=== PATIENT | female | born 1975 | race Caucasian/White ===

== ENCOUNTER 2017-11-22 17:46 | Emergency (ER) | payer SELFPAY, OTHER | END 2017-11-22 21:57 | disposition left against medical advice (07) | LOC: FTE 17:46 | DX: Z53.21 Procedure and treatment not carried out due to patient leaving prior to being seen by health care provider (principal) ==

== ENCOUNTER 2018-02-21 17:53 | Emergency (ER) | payer OTHER ==
[2018-02-21 20:05] LABS: ADD UMIC NO; UR ASCORBIC ACID NEGATIVE (NEGATIVE); UR BILIRUBIN (Dip) NEGATIVE (NEGATIVE); UR BLOOD (Dip) NEGATIVE (NEGATIVE); UR CLARITY SLIGHTLY CLOUDY (CLEAR); UR COLOR YELLOW (YELLOW); UR GLUCOSE (Dip) NEGATIVE (NEGATIVE); UR KETONES (Dip) TRACE mg/dL (NEGATIVE); UR LEUKOCYTE ESTERASE (Dip) NEGATIVE Leu/ul (NEGATIVE); UR NITRITE (Dip) NEGATIVE (NEGATIVE); UR RBC 0 /HPF (0-5); UR SPECIFIC GRAVITY (Dip) 1.019 (1.003-1.030); UR SQUAMOUS EPITHELIAL CELL FEW /HPF (FEW); UR TOTAL PROTEIN (Dip) NEGATIVE (NEGATIVE); UR UROBILINOGEN (Dip) NEGATIVE (NEGATIVE); UR WBC 1 /HPF (0-5)
[2018-02-21] MEDS: SOD CHLORIDE 0.9% 1,000 ML IV (20:07)
[2018-02-21 20:28] LABS: ADD MAN DIFF? NO
[2018-02-21 20:30] LABS: BASOPHILS % 0.4 % (0.0-2.0); EOSINOPHILS # 0.1 10^3/ul (0.0-0.5); EOSINOPHILS % 1.1 % (0.0-7.0); HEMATOCRIT 44.9 % (37.0-47.0); HEMOGLOBIN 14.9 g/dl (12.0-16.0); LYMPHOCYTES # 3.7 10^3/ul (0.8-2.9); LYMPHOCYTES % 36.6 % (15.0-51.0); MEAN CORPUSCULAR HGB CONC 33.2 g/dl (32.0-37.0); MEAN CORPUSCULAR VOLUME 93.5 fl (82.0-101.0); MEAN PLATELET VOLUME 9.9 fl (7.4-10.4); MONOCYTE # 0.6 10^3/ul (0.3-0.9); MONOCYTES % 6.3 % (0.0-11.0); NEUTROPHIL # 5.5 10^3/ul (1.6-7.5); NEUTROPHILS % 55.2 % (39.0-77.0); PLATELET COUNT 308 10^3/UL (140-415); RED CELL DISTRIBUTION WIDTH 12.8 % (11.5-14.5)
[2018-02-21 20:48] LABS: ALANINE AMINOTRANSFERASE 27 IU/L (13-69); ALBUMIN 4.5 g/dl (3.3-4.9); ALBUMIN/GLOBULIN RATIO 1.36; ALKALINE PHOSPHATASE 63 IU/L (42-121); ANION GAP 18 (8-16); ASPARTATE AMINO TRANSFERASE 20 IU/L (15-46); BILIRUBIN,INDIRECT 0.2 mg/dl (0-1.1); BILIRUBIN,TOTAL 0.2 mg/dl (0.2-1.3); BLOOD UREA NITROGEN 21 mg/dl (7-20); CALCIUM 9.6 mg/dl (8.4-10.2); CARBON DIOXIDE 28 mmol/L (21-31); CHLORIDE 103 mmol/L (97-110); CREATININE 0.77 mg/dl (0.44-1.00); GLUCOSE 89 mg/dl (70-220); LIPASE 131 U/L (23-300); POTASSIUM 3.8 mmol/L (3.5-5.1); SODIUM 145 mmol/L (135-144); TOTAL PROTEIN 7.8 g/dl (6.1-8.1)
[2018-02-21 21:10] LABS: TROPONIN-I < 0.012 ng/ml (0.00-0.12)
[2018-02-21] MEDS: LORAZEPAM 2 MG INJ IV (22:53)
== END 2018-02-22 00:32 | disposition home or self-care (01) ==
LOC: FTE 02-22 00:32
DX: R20.0 Anesthesia of skin (principal); R20.2 Paresthesia of skin; R07.9 Chest pain, unspecified
CPT/HCPCS: 36415; 70450; 71045; 80053; 81001; 81003; 81025; 83690; 84484; 85025; 93005; 96374; 99285-25

== ENCOUNTER 2019-05-08 17:48 | Observation (INO) | payer OTHER ==
[2019-05-08] MEDS: KETOROLAC 60 MG INJ IM (21:58)
[2019-05-08] MEDS: SODIUM CHLORIDE 0.9% 1L BAG IV* (22:54)
[2019-05-08 22:55] LABS: ADD MAN DIFF? NO
[2019-05-08] MEDS: morphine 4 MG/ML VIAL IV (22:57)
[2019-05-08 22:58] LABS: BASOPHIL # 0.1 10^3/ul (0.0-0.1); BASOPHILS % 0.6 % (0.0-2.0); EOSINOPHILS # 0.2 10^3/ul (0.0-0.5); EOSINOPHILS % 1.8 % (0.0-7.0); HEMATOCRIT 39.9 % (37.0-47.0); HEMOGLOBIN 13.3 g/dl (12.0-16.0); LYMPHOCYTES # 3.8 10^3/ul (0.8-2.9); MEAN CORPUSCULAR HEMOGLOBIN 30.4 pg (29.0-33.0); MEAN CORPUSCULAR HGB CONC 33.3 g/dl (32.0-37.0); MEAN CORPUSCULAR VOLUME 91.1 fl (82.0-101.0); MEAN PLATELET VOLUME 9.7 fl (7.4-10.4); MONOCYTE # 0.5 10^3/ul (0.3-0.9); MONOCYTES % 5.1 % (0.0-11.0); NEUTROPHIL # 4.4 10^3/ul (1.6-7.5); NEUTROPHILS % 49.3 % (39.0-77.0); PLATELET COUNT 251 10^3/UL (140-415); RED BLOOD COUNT 4.38 10^6/ul (4.20-5.40); RED CELL DISTRIBUTION WIDTH 13.4 % (11.5-14.5)
[2019-05-08 22:58] LABS: WHITE BLOOD COUNT 8.8 10^3/ul (4.8-10.8)
[2019-05-08] MEDS: ONDANSETRON 4 MG INJ IV (22:58)
[2019-05-08 23:18] LABS: ADD UMIC YES; UR ASCORBIC ACID NEGATIVE (NEGATIVE); UR BACTERIA FEW /HPF (NONE SEEN); UR BILIRUBIN (Dip) NEGATIVE (NEGATIVE); UR BLOOD (Dip) NEGATIVE (NEGATIVE); UR CLARITY CLOUDY (CLEAR); UR COLOR YELLOW (YELLOW); UR GLUCOSE (Dip) NEGATIVE (NEGATIVE); UR KETONES (Dip) NEGATIVE (NEGATIVE); UR LEUKOCYTE ESTERASE (Dip) NEGATIVE Leu/ul (NEGATIVE); UR MUCUS FEW /HPF (NONE SEEN); UR NITRITE (Dip) NEGATIVE (NEGATIVE); UR RBC 2 /HPF (0-5); UR SPECIFIC GRAVITY (Dip) 1.018 (1.003-1.030); UR SQUAMOUS EPITHELIAL CELL FEW /HPF (FEW); UR TOTAL PROTEIN (Dip) NEGATIVE (NEGATIVE); UR UROBILINOGEN (Dip) NEGATIVE (NEGATIVE); UR WBC 1 /HPF (0-5)
[2019-05-08 23:19] LABS: INR 1.02; PROTIME 13.5 Sec (11.9-14.9); PT RATIO 1.1
[2019-05-08 23:20] LABS: PARTIAL THROMBOPLASTIN TIME 27.1 Sec (23.0-35.0)
[2019-05-08 23:29] LABS: ALANINE AMINOTRANSFERASE 22 IU/L (13-69); ALBUMIN/GLOBULIN RATIO 1.33; ALKALINE PHOSPHATASE 77 IU/L (42-121); ANION GAP 9 (5-13); ASPARTATE AMINO TRANSFERASE 18 IU/L (15-46); BILIRUBIN,INDIRECT 0.4 mg/dl (0-1.1); BILIRUBIN,TOTAL 0.4 mg/dl (0.2-1.3); BLOOD UREA NITROGEN 19 mg/dl (7-20); CALCIUM 8.9 mg/dl (8.4-10.2); CARBON DIOXIDE 24 mmol/L (21-31); CHLORIDE 109 mmol/L (97-110); CREATININE 0.57 mg/dl (0.44-1.00); Estimated GFR > 60 mL/min (>60); GLUCOSE 97 mg/dl (70-220); POTASSIUM 4.1 mmol/L (3.5-5.1); SODIUM 142 mmol/L (135-144)
[2019-05-08 23:39] LABS: TROPONIN-I < 0.012 ng/ml (0.000-0.120)
[2019-05-09] MEDS ORDERED: AMPICILLIN/SULB 3 GM/NS (PMX) 100 ML IVPB (00:30)
[2019-05-09] MEDS: AMPICILLIN/SULB 3 GM/NS (PMX) 100 ML IVPB (00:59)
[2019-05-09 01:13] LABS: LACTIC ACID 0.8 mmol/L (0.5-2.0)
[2019-05-09] MEDS ORDERED: ONDANSETRON 4 MG INJ IV (02:00)
[2019-05-09] MEDS ORDERED: ACETAMINOPHEN 325 MG TAB PO ×2 (02:00→03:00)
[2019-05-09] MEDS ORDERED: ONDANSETRON 4 MG TAB PO (03:00)
[2019-05-09] MEDS ORDERED: DOCUSATE SODIUM 100 MG CAP PO (03:00)
[2019-05-09] MEDS ORDERED: NACL 0.9% 3 ML SYG IV (03:00)
[2019-05-09 03:32] LABS: LACTIC ACID 1.2 mmol/L (0.5-2.0)
[2019-05-09] MEDS: FAMOTIDINE 20 MG TAB PO ×2 (04:30→08:52)
[2019-05-09] MEDS: LORAZEPAM 1 MG TAB PO ×2 (06:00→14:00)
[2019-05-09] MEDS: BACLOFEN 10 MG TAB PO ×2 (06:00→14:00)
[2019-05-09 07:35] LABS: ADD MAN DIFF? NO
[2019-05-09 07:41] LABS: BASOPHILS % 0.6 % (0.0-2.0); EOSINOPHILS # 0.1 10^3/ul (0.0-0.5); EOSINOPHILS % 1.7 % (0.0-7.0); HEMATOCRIT 36.9 % (37.0-47.0); HEMOGLOBIN 12.4 g/dl (12.0-16.0); LYMPHOCYTES # 2.9 10^3/ul (0.8-2.9); LYMPHOCYTES % 42.6 % (15.0-51.0); MEAN CORPUSCULAR HGB CONC 33.6 g/dl (32.0-37.0); MEAN CORPUSCULAR VOLUME 92.3 fl (82.0-101.0); MEAN PLATELET VOLUME 9.9 fl (7.4-10.4); MONOCYTE # 0.5 10^3/ul (0.3-0.9); MONOCYTES % 7.6 % (0.0-11.0); NEUTROPHIL # 3.2 10^3/ul (1.6-7.5); NEUTROPHILS % 47.2 % (39.0-77.0); NUCLEATED RED BLOOD CELLS% 0.3 /100WBC (0.0-0.0); PLATELET COUNT 226 10^3/UL (140-415); RED CELL DISTRIBUTION WIDTH 13.3 % (11.5-14.5)
[2019-05-09 07:41] LABS: WHITE BLOOD COUNT 6.9 10^3/ul (4.8-10.8)
[2019-05-09 08:04] LABS: HEMOGLOBIN A1C 4.9 % (0-5.9)
[2019-05-09 08:05] LABS: ANION GAP 6 (5-13); BLOOD UREA NITROGEN 16 mg/dl (7-20); CALCIUM 8.3 mg/dl (8.4-10.2); CARBON DIOXIDE 24 mmol/L (21-31); CHLORIDE 112 mmol/L (97-110); CREATININE 0.64 mg/dl (0.44-1.00); Estimated GFR > 60 mL/min (>60); GLUCOSE 95 mg/dl (70-220); POTASSIUM 4.1 mmol/L (3.5-5.1); SODIUM 142 mmol/L (135-144)
[2019-05-09] MEDS: ENOXAPARIN 40 MG/0.4 ML SYG SC ×2 (08:55→09:00)
[2019-05-09] MEDS: HYDROCODONE/APAP (5/325) TAB PO (15:56)
== END 2019-05-09 18:00 | disposition home or self-care (01) ==
LOC: PP2 05-09 03:42 → FTE 17:48
DX: N63.0 Unspecified lump in unspecified breast (principal)
CPT/HCPCS: 76641; 80048; 80053; 81001; 81025; 83036; 83605; 84443; 84484; 85025; 85610; 85730; 87040-91; 93005; 96365; 96372; 99285-25; G0378